=== PATIENT | female | born 1990 | race Hispanic/Latino ===

== ENCOUNTER 2017-10-04 15:06 | Outpatient (CLI) | payer BC ==
--- NOTE | 2017-10-04 16:04 | Ultrasound Report ---
TRANSABDOMINAL AND TRANSVAGINAL PELVIC ULTRASOUND: 10/04/17 15:06:00 CLINICAL: Recent miscarriage with retained products of conception. Vaginal bleeding. FINDINGS: Transabdominal and transvaginal pelvic ultrasound demonstrated enlarged uterus measuring 11.7 x 5.5 x 7.6 cm.Normal uterine contour and echogenicity. No uterine mass or fibroid. The uterine cavity is markedly distended with predominantly heterogeneous hypoechoic material. The cavity measures 3 cm in AP dimension. No blood flow is identified by color Doppler within the contents of the uterine cavity. The cervix is closed. The ovaries are normal. The right ovary measures 2.6 x 1.9 x 3.1cm. A 1 cm cyst in the left ovary. The left ovary measures 2.6 x 1.8 x 2.0cm. No adnexal mass. No free fluid. Normal urinary bladder. IMPRESSION: 1. A markedly distended uterine cavity with retained products of conception. 2. No adnexal mass or evidence of hemoperitoneum to suggest ectopic . 3. Normal ovaries.
== END 2017-10-04 15:07 | disposition home or self-care (01) ==
LOC: SPVWC 15:06
PROVIDERS: ATTEND Obstetrics & Gynecology
DX: O03.4 Incomplete spontaneous abortion without complication (principal); O02.1 Missed abortion; N85.2 Hypertrophy of uterus; Z3A.00 Weeks of gestation of pregnancy not specified
CPT/HCPCS: 76830; 76856